=== PATIENT | male | born 1985 | race American Indian/Alaskan Native ===

== ENCOUNTER 2018-09-18 15:41 | Emergency (ER) | payer SELFPAY ==
[2018-09-18 16:20] VITALS: BP 115/74
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
[2018-09-18] MEDS ORDERED: IBUPROFEN PO ONE (17:52)
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
== END 2018-09-18 18:52 | disposition home or self-care (01) ==
LOC: ED 15:41
DX: S39.012A Strain of muscle, fascia and tendon of lower back, initial encounter (principal); F17.200 Nicotine dependence, unspecified, uncomplicated; Z79.899 Other long term (current) drug therapy; V49.49XA Driver injured in collision with other motor vehicles in traffic accident, initial encounter; Y93.89 Activity, other specified; Y92.410 Unspecified street and highway as the place of occurrence of the external cause; Y99.8 Other external cause status
CPT/HCPCS: 72100